=== PATIENT | female | born 1960 | race Caucasian/White ===

== ENCOUNTER 2018-07-20 01:33 | Inpatient (IN) | payer OTHER ==
[~2018-07-20] VITALS: Ht 162.6 cm; Wt 57.6 kg
[2018-07-20] MEDS ORDERED: ONDANSETRON 2MG/ML, 2ML IVPush ONE (02:00)
[2018-07-20] MEDS ORDERED: MORPHINE SULFATE 4 MG/ML, 1ML IVPush PRN ×2 (02:00→04:00)
[2018-07-20] MEDS ORDERED: ONDANSETRON 2MG/ML, 2ML ONE (02:07)
[2018-07-20] MEDS ORDERED: MORPHINE SULFATE 4 MG/ML, 1ML ONE (02:07)
[2018-07-20 02:13] LABS: BASOPHILS # (AUTO) 0.05 x10^3/uL (0-0.1); BASOPHILS % (AUTO) 0 % (0-1); EOSINOPHILS # (AUTO) 0.13 x10^3/uL (0-0.4); EOSINOPHILS % (AUTO) 1 % (1-7); LYMPHOCYTES # (AUTO) 1.59 x10^3/uL (1-3.4); LYMPHOCYTES % (AUTO) 15 % (22-44); MD NO; MEAN CORPUSCULAR HEMOGLOBIN 30.7 pg (27.0-34.8); MEAN CORPUSCULAR HGB CONC 34.3 g/dL (32.4-35.8); MEAN CORPUSCULAR VOLUME 89.6 fL (80-100); MEAN PLATELET VOLUME 8.1 fL (7.4-10.4); MONOCYTES # (AUTO) 0.29 x10^3/uL (0.2-0.8); MONOCYTES % (AUTO) 3 % (2-9); NEUTROPHILS # (AUTO) 8.53 x10^3/uL (1.8-6.8); NEUTROPHILS % (AUTO) 81 % (42-75); PLATELET COUNT 339 x10^3/uL (130-400); RED BLOOD COUNT 4.88 x10^6/uL (3.82-5.3); RED CELL DISTRIBUTION WIDTH 13.7 % (9.6-15.2)
[2018-07-20 02:22] LABS: ALANINE AMINOTRANSFERASE 25 U/L (12-78); ALBUMIN 3.8 g/dL (3.4-5.0); ANION GAP 9 mmol/L (5-15); CALCIUM 9.5 mg/dL (8.5-10.1); CHLORIDE 100 mmol/L (98-107); CREATININE 0.99 mg/dL (0.55-1.02)
[2018-07-20 02:24] LABS: ALKALINE PHOSPHATASE 59 U/L (45-117); BILIRUBIN,TOTAL 0.5 mg/dL (0.2-1.0); TOTAL PROTEIN 7.8 g/dL (6.4-8.2)
[2018-07-20 02:33] LABS: MICROSCOPIC AUTO
[2018-07-20 02:34] LABS: CULTURE INDICATED? NO
--- NOTE | 2018-07-20 02:39 | NUR ---
PT HERE FOR CENTRAL ABD PAIN WITH N/V THAT STARTED YESTERDAY AT 1700. PT HAD SIMILAR EPISODE 1 YEAR AGO. VSS. PIV STARTED AND PT MEDICATED. UA SENT TO LAB. CALL LIGHT IN REACH
--- NOTE | 2018-07-20 02:59 | NUR ---
PT TO CT
[2018-07-20] MEDS ORDERED: OMNIPAQUE 350 MG/ML, 100ML BOTTLE ONE (03:08)
[2018-07-20] MEDS ORDERED: METF-163 PO (03:43)
[2018-07-20] MEDS ORDERED: LEVO25TA2 PO (03:43)
[2018-07-20] MEDS ORDERED: METF1000 PO (03:43)
--- NOTE | 2018-07-20 03:44 | NUR ---
PT RESTING AND PAIN HAS IMPROVED. VSS. CALL LIGHT IN REACH
[2018-07-20] MEDS ORDERED: ONDANSETRON 2MG/ML, 2ML IVPush PRN ×2 (04:00→05:30)
[2018-07-20] MEDS ORDERED: PROMETHAZINE 25 MG/ML, 1ML IM PRN (05:30)
[2018-07-20] MEDS ORDERED: hydrALAzine 20 MG/ML, 1ML IVPush PRN (05:30)
[2018-07-20] MEDS ORDERED: ONDANSETRON ODT 4 MG PO PRN (05:30)
[2018-07-20] MEDS ORDERED: morphine SULFATE 10 MG/ML, 1ML IVPush PRN (05:30)
[2018-07-20] MEDS ORDERED: ACETAMINOPHEN 325 MG TABLET PO PRN (05:30)
[2018-07-20] MEDS ORDERED: OXYcodone IR 5MG TABLET PO PRN (05:30)
[2018-07-20] MEDS: LEVOTHYROXINE 25 MCG TABLET PO SCH (06:00)
[2018-07-20] MEDS: D5%-0.9% NACL 1,000 ML IV SCH ×2 (06:08→18:26)
[2018-07-20 06:19] VITALS: BP 120/68
[2018-07-20 06:52] LABS: FREE T4 (FREE THYROXINE) 1.23 ng/dL (0.76-1.46); THYROID STIMULATING HORMONE 1.77 mIU/L (0.358-3.740)
[2018-07-20 06:57] LABS: HEMOGLOBIN A1C 6.8 % (4.2-6.3)
[2018-07-20 07:53] VITALS: BP 116/67
[2018-07-20] MEDS: PANTOPRAZOLE 40 MG IV IVPush SCH (08:23)
[2018-07-20] MEDS: INSULIN LISPRO 100 UNITS/ML, PEN SQ-INSULIN SCH ×3 (09:17→21:00)
[2018-07-20 14:27] VITALS: BP 112/74
[2018-07-20 19:24] VITALS: BP 100/63
[2018-07-21 02:44] VITALS: BP 100/64
[2018-07-21] MEDS: INSULIN LISPRO 100 UNITS/ML, PEN SQ-INSULIN SCH ×4 (03:00→21:00)
[2018-07-21 05:36] LABS: BASOPHILS # (AUTO) 0.02 x10^3/uL (0-0.1); BASOPHILS % (AUTO) 0 % (0-1); EOSINOPHILS # (AUTO) 0.36 x10^3/uL (0-0.4); EOSINOPHILS % (AUTO) 5 % (1-7); LYMPHOCYTES # (AUTO) 1.48 x10^3/uL (1-3.4); LYMPHOCYTES % (AUTO) 22 % (22-44); MD NO; MEAN CORPUSCULAR HGB CONC 32.9 g/dL (32.4-35.8); MEAN CORPUSCULAR VOLUME 91.2 fL (80-100); MEAN PLATELET VOLUME 8.2 fL (7.4-10.4); MONOCYTES # (AUTO) 0.38 x10^3/uL (0.2-0.8); MONOCYTES % (AUTO) 6 % (2-9); NEUTROPHILS % (AUTO) 67 % (42-75); PLATELET COUNT 261 x10^3/uL (130-400); RED BLOOD COUNT 4.23 x10^6/uL (3.82-5.3); RED CELL DISTRIBUTION WIDTH 13.8 % (9.6-15.2)
[2018-07-21 05:45] LABS: ALBUMIN 2.9 g/dL (3.4-5.0); ANION GAP 5 mmol/L (5-15); CALCIUM 8.3 mg/dL (8.5-10.1); CHLORIDE 110 mmol/L (98-107)
[2018-07-21 05:51] LABS: ALANINE AMINOTRANSFERASE 17 U/L (12-78); ALKALINE PHOSPHATASE 49 U/L (45-117); BILIRUBIN,TOTAL 0.4 mg/dL (0.2-1.0); CHOL/HDL RATIO 2.8; CHOLESTEROL, TOTAL 183 mg/dL (140-239); CREATININE 0.78 mg/dL (0.55-1.02); HDL CHOL % 36 % (28-40); HDL CHOLESTEROL (DIRECT) 65 mg/dL (40-60); LDL CHOLESTEROL,CALCULATED 97 mg/dL (54-169); LDL/HDL RATIO 1.5 (0.5-3.0); TRIGLYCERIDES 107 mg/dL (50-200); VLDL CHOLESTEROL 21 mg/dL (0-25)
[2018-07-21] MEDS: LEVOTHYROXINE 25 MCG TABLET PO SCH (06:44)
[2018-07-21] MEDS: D5%-0.9% NACL 1,000 ML IV SCH (07:49)
[2018-07-21 08:00] VITALS: BP 115/64
[2018-07-21] MEDS: PANTOPRAZOLE 40 MG IV IVPush SCH (08:54)
[2018-07-21 13:58] VITALS: BP 127/77
[2018-07-21 20:10] VITALS: BP 108/68
[2018-07-22 03:27] VITALS: BP 118/62
[2018-07-22 04:16] VITALS: BP 118/65
[2018-07-22] MEDS: LEVOTHYROXINE 25 MCG TABLET PO SCH (06:21)
[2018-07-22] MEDS: INSULIN LISPRO 100 UNITS/ML, PEN SQ-INSULIN SCH ×2 (06:22→11:00)
[2018-07-22 07:30] VITALS: BP 115/71
[2018-07-22] MEDS: PANTOPRAZOLE 40 MG IV IVPush SCH (09:04)
[2018-07-22] MEDS ORDERED: DOCU-131 PO (10:44)
== END 2018-07-22 14:12 | disposition home or self-care (01) | DRG 389 ==
LOC: ED 02:38 → EDIP 03:47 → 4NOR 04:35
PROVIDERS: ADMIT Internal Medicine; ATTEND Internal Medicine
DX: K56.50 Intestinal adhesions [bands], unspecified as to partial versus complete obstruction (principal); E87.1 Hypo-osmolality and hyponatremia; E86.0 Dehydration; E03.9 Hypothyroidism, unspecified; E11.9 Type 2 diabetes mellitus without complications; D72.823 Leukemoid reaction; Z98.891 History of uterine scar from previous surgery; Z88.6 Allergy status to analgesic agent
CPT/HCPCS: 36415; 99285; J7042; 74177; 80053; 80061; 81001; 82962; 83036; 83690; 83735; 84439; 84443; 85025; 96374; 96375; G0378; J2405; Q9967; C9113; J1815

== ENCOUNTER 2020-08-30 20:55 | Emergency (ER) | payer OTHER ==
[~2020-08-30] VITALS: Ht 162.6 cm; Wt 53.8 kg
[~2020-08-30 20:55] MED LIST: DOCU-131 PO; LEVO25TA2 PO; METF-163 PO; METF1000 PO
--- NOTE | 2020-08-30 21:15 | NUR ---
PT BIB VIA POV FOR LEFT ABDOMINAL QUADRANT PAIN FOR 7 MONTHS BUT GOT INCREASINGLY WORSE X3DAYS, INCREASED PAIN ON BENDING. NUMBNESS AND TINGLING IN LEFT FOOT.
[2020-08-30] MEDS ORDERED: SODIUM CHLORIDE FLUSH 10ML SYR IVF ONE (21:30)
[2020-08-30] MEDS ORDERED: OMNIPAQUE 350 MG/ML, 100ML BOTTLE ONE (21:30)
[2020-08-30 21:49] LABS: BASOPHILS % (AUTO) 2 % (0-1); EOSINOPHILS % (AUTO) 4 % (1-7); LYMPHOCYTES % (AUTO) 38 % (22-44); MEAN CORPUSCULAR HEMOGLOBIN 31.2 pg (27.0-34.8); MEAN PLATELET VOLUME 8.1 fL (7.4-10.4); MONOCYTES % (AUTO) 7 % (2-9); NEUTROPHILS % (AUTO) 50 % (42-75); PLATELET COUNT 301 x10^3/uL (130-400); RED BLOOD COUNT 4.79 x10^6/uL (3.82-5.3); RED CELL DISTRIBUTION WIDTH 13.6 % (9.6-15.2)
[2020-08-30 21:50] LABS: MD NO
[2020-08-30 21:54] LABS: ALANINE AMINOTRANSFERASE 28 U/L (12-78); ALBUMIN 3.7 g/dL (3.4-5.0); ANION GAP 7 mmol/L (5-15); CALCIUM 8.9 mg/dL (8.5-10.1); CHLORIDE 108 mmol/L (98-107)
[2020-08-30 21:56] LABS: ALKALINE PHOSPHATASE 61 U/L (45-117); BILIRUBIN,TOTAL 0.2 mg/dL (0.2-1.0); TOTAL PROTEIN 7.3 g/dL (6.4-8.2)
[2020-08-30 22:45] LABS: MICROSCOPIC NOT IND
[2020-08-30 23:55] VITALS: BP 111/57
== END 2020-08-30 23:57 | disposition home or self-care (01) ==
LOC: ED 21:55
DX: S39.011A Strain of muscle, fascia and tendon of abdomen, initial encounter (principal); N28.1 Cyst of kidney, acquired; R10.32 Left lower quadrant pain; R20.2 Paresthesia of skin; E11.9 Type 2 diabetes mellitus without complications; X58.XXXA Exposure to other specified factors, initial encounter; Y93.89 Activity, other specified; Y92.89 Other specified places as the place of occurrence of the external cause; Y99.8 Other external cause status
CPT/HCPCS: 36415; 74177; 80053; 81003; 83690; 85025; 99285; Q9967